=== PATIENT | male | born 1970 | race Caucasian/White ===

== ENCOUNTER 2017-01-27 12:25 | Emergency (ER) | payer MEDICAID ==
[~2017-01-27] VITALS: Ht 175.3 cm; Wt 100.7 kg
[~2017-01-27 12:25] MED LIST: BUPR150T10 PO; DIPH25CA83 PO; DOCU250C88 PO; FLUO15CR TP; FOLI1TAB16 PO; FURO20TA4 PO; HYDR-3326 PO; LEVO25TA9 PO; MAGN400T6 PO; ONDA4TAB8 PO; PANT40TA4 PO; PREG100C PO; PROP10TA29 PO; SPIR100T PO; ZOLP10TA6 PO
--- NOTE | 2017-01-27 13:15 | NUR ---
PT IS IN ROOM #2A. DR LUEVANO EVALUATED THE PT.
[2017-01-27 13:57] LABS: BASOPHILS % (AUTO) 0.4 % (0.0-2.0); CREATININE 1.6 mg/dL (0.6-1.3); EOSINOPHILS # (AUTO) 0.2 K/uL (0.0-0.7); HEMATOCRIT 27.9 % (40-50); LYMPHOCYTES # (AUTO) 0.5 K/UL (0.8-4.8); LYMPHOCYTES % (AUTO) 9.3 % (20.5-51.5); MEAN CORPUSCULAR HEMOGLOBIN 24.7 UUG (27.0-31.0); MEAN CORPUSCULAR HGB CONC 32 g/dL (32.0-37.0); MEAN CORPUSCULAR VOLUME 76.5 FL (82.0-92.0); MONOCYTES # (AUTO) 0.4 K/UL (0.1-1.30); MONOCYTES % (AUTO) 7.7 % (0.0-11.0); NEUTROPHILS # (AUTO) 4.5 K/UL (1.8-8.9); NEUTROPHILS % (AUTO) 78.6 % (38.5-71.5); PLATELET COUNT (AUTO) 75 K/UL (150-450); POTASSIUM 3.5 mmol/L (3.5-5.1); RED BLOOD CELL COUNT(AUTO) 3.65 MIL/UL (4.7-6.1); WHITE BLOOD COUNT (AUTO) 5.6 K/UL (4.0-11.2)
[2017-01-27 14:03] LABS: BILIRUBIN,DIRECT 1.3 mg/dL (0.0-0.2); TOTAL PROTEIN, SERUM 7.3 g/dL (6.4-8.2)
[2017-01-27 14:21] LABS: EOSINOPHILS % (MANUAL) 6 % (0-8); LYMPHOCYTES % (MANUAL) 11 % (20-40); MONOCYTES % (MANUAL) 6 % (2-10); NEUTROPHILS % (MANUAL) 77 % (42-75)
[2017-01-27] MEDS ORDERED: CALC-343 PO (14:42)
[2017-01-27] MEDS ORDERED: ZINC220C8 PO (14:42)
--- NOTE | 2017-01-27 16:48 | NUR ---
PT IS GOING TO BE TRANSFERED TO [facility] VIA BLS [facility]BUL[facility]. ACCEPTING DR , IS DR GRANGER. PT IS GOING TO M/S FLOOR , TO ROOM #521A. PHONE # [phone]. HOSPITAL BANK TELLER ARRANGING THE TRANSFER IS DVID. PHONE # [phone]. DR RAIN SPOKE TO DR GRANGER TO CONFIRM TRANSFER.
--- NOTE | 2017-01-27 16:59 | NUR ---
PT IS GOING TO BE TRANSFERED BY [facility]. AUTORIZATION # [id number] .
[2017-01-27] MEDS ORDERED: MORPHINE SULFATE 4 MG/1 ML DISP.SYRIN IV ONE (17:15)
[2017-01-27] MEDS ORDERED: ONDANSETRON 4 MG/2 ML VIAL IV ONE (17:15)
--- NOTE | 2017-01-27 17:28 | NUR ---
PT WAS TRANSFERD TO [facility] VIA BLS AMBULANCE. REPORT WAS GIVEN TO AMBULANCE EMT AND TO [facility] M/S RN.
[2017-01-27] MEDS ORDERED: MORPHINE SULFATE 4 MG/1 ML DISP.SYRIN ONE (17:33)
[2017-01-27] MEDS ORDERED: ONDANSETRON 4 MG/2 ML VIAL ONE (17:33)
== END 2017-01-27 17:39 | disposition short-term general hospital (02) ==
LOC: ER 12:28
DX: R18.8 Other ascites (principal); D69.6 Thrombocytopenia, unspecified; D64.9 Anemia, unspecified; F32.0 Major depressive disorder, single episode, mild; K21.9 Gastro-esophageal reflux disease without esophagitis
CPT/HCPCS: 49083; 71010; 80048; 80076; 83690; 84484; 85025; 85730; 93005; 96374; 96375; 99285; A4663; J2270; J2405; 70030-TC